=== PATIENT | male | born 1955 | race Caucasian/White ===

== ENCOUNTER → 2020-08-25 | Outpatient (CLI) | payer MEDICARE, BC ==
[~2020-08-25] MED LIST: OMNIPAQUE 350 MG/ML, 100ML BOTTLE ONE
== END | disposition home or self-care (01) ==
LOC: CFH 11:47
PROVIDERS: ATTEND Surgery
DX: K43.9 Ventral hernia without obstruction or gangrene (principal)
CPT/HCPCS: 74177; 82565; Q9967

== ENCOUNTER → 2020-11-16 | Outpatient (CLI) | payer MEDICARE, BC ==
[~2020-11-16] MED LIST changes: +CARB1TAB47 PO; +LEVO75TA PO; +LISI-170 PO; -OMNIPAQUE 350 MG/ML, 100ML BOTTLE ONE
[2020-11-16 14:25] LABS: ALBUMIN 3.7 g/dL (3.4-5.0); ANION GAP 5 mmol/L (5-15); CALCIUM 9.2 mg/dL (8.5-10.1); CHLORIDE 108 mmol/L (98-107)
[2020-11-16 14:30] LABS: ALANINE AMINOTRANSFERASE 11 U/L (12-78); ALKALINE PHOSPHATASE 57 U/L (45-117); BILIRUBIN,TOTAL 0.6 mg/dL (0.2-1.0); CREATININE 0.81 mg/dL (0.7-1.3); TOTAL PROTEIN 7.6 g/dL (6.4-8.2)
== END | disposition home or self-care (01) ==
LOC: STAR 13:22
PROVIDERS: ATTEND Surgery
DX: Z01.818 Encounter for other preprocedural examination (principal); K43.2 Incisional hernia without obstruction or gangrene; R94.31 Abnormal electrocardiogram [ECG] [EKG]; I44.4 Left anterior fascicular block; G20 Parkinson's disease
CPT/HCPCS: 36415; 80053; 93005

== ENCOUNTER 2020-11-22 07:42 | Inpatient (IN) | payer MEDICARE, BC ==
[~2020-11-22] VITALS: Ht 185.4 cm; Wt 130.7 kg
[~2020-11-22 07:42] MED LIST changes: +BUPIVACAINE/PF 0.5% ONE; +EPINEPHRINE 1 MG/ML, 1ML ONE
[2020-11-22] MEDS ORDERED: VIT D PO (08:03)
[2020-11-22 08:05] VITALS: BP 139/95
[2020-11-22] MEDS ORDERED: CHLORHEXIDINE 15 ML UDC ONE (08:06)
[2020-11-22] MEDS ORDERED: LACTATED RINGERS 1,000 ML IV SCH (08:30)
[2020-11-22] MEDS ORDERED: CHLORHEXIDINE 15 ML UDC PO ONE (08:30)
[2020-11-22] MEDS ORDERED: MIDAZOLAM 1 MG/ML, 2ML ONE (08:41)
[2020-11-22] MEDS ORDERED: ROCURONIUM 10MG/ML,5ML ONE (08:42)
[2020-11-22] MEDS ORDERED: PROPOFOL 10 MG/ML, 20ML ONE (08:42)
[2020-11-22] MEDS ORDERED: NEOSTIGMINE 1 MG/ML, 10ML ONE (08:42)
[2020-11-22] MEDS ORDERED: GLYCOPYRROLATE 0.2MG/1ML, 5ML ONE (08:42)
[2020-11-22] MEDS ORDERED: CEFAZOLIN 1,000 MG ONE ×2 (08:42→09:45)
[2020-11-22] MEDS ORDERED: FENTANYL PF 250 MCG/5ML ONE (08:42)
[2020-11-22] MEDS ORDERED: FENTANYL PF 100 MCG/2ML IV PRN (09:30)
[2020-11-22] MEDS ORDERED: morphine SULFATE 10 MG/ML, 1ML IVPush PRN (09:30)
[2020-11-22] MEDS ORDERED: OXYcodone 5 MG/5 ML ORAL.SOL UDC PO PRN (09:30)
[2020-11-22] MEDS ORDERED: ACETAMINOPHEN 325 MG TABLET PO PRN (09:30)
[2020-11-22] MEDS ORDERED: LABETALOL 5MG/ML, 20ML IV PRN (09:30)
[2020-11-22] MEDS ORDERED: PROMETHAZINE 25 MG/ML, 1ML IVPush PRN (09:30)
[2020-11-22] MEDS ORDERED: MEPERIDINE/PF 25MG/0.5ML IVPush PRN (09:30)
[2020-11-22] MEDS ORDERED: hydrALAzine 20 MG/ML, 1ML IV PRN (09:30)
[2020-11-22] MEDS ORDERED: PHENYLEPHRINE 10 MG/ML ONE (09:35)
[2020-11-22] MEDS ORDERED: FENTANYL PF 100 MCG/2ML ONE ×3 (10:26→12:01)
[2020-11-22] MEDS ORDERED: VASOPRESSIN 20 UNIT/ML, 1ML ONE (10:44)
[2020-11-22] MEDS ORDERED: CALCIUM CARBONATE 500 MG TAB.CHEW PO PRN (12:00)
[2020-11-22] MEDS: CARBIDOPA/LEVODOPA 25 MG/100 MG TABLET PO SCH ×3 (12:00→21:40)
[2020-11-22] MEDS ORDERED: LORazepam 2 MG/ML, 1ML IVPush PRN (12:00)
[2020-11-22] MEDS ORDERED: ACETAMINOPHEN 100 ML IVPB SCH (12:00)
[2020-11-22] MEDS ORDERED: OXYcodone 5 MG/5 ML ORAL.SOL UDC ONE (12:01)
[2020-11-22] MEDS ORDERED: HYDROmorphone 1 MG/ML, 1ML INJ ONE (12:01)
[2020-11-22] MEDS: HYDROmorphone 1 MG/ML, 1ML INJ IVPush PRN ×2 (12:12→12:17)
[2020-11-22] MEDS ORDERED: ONDANSETRON 2MG/ML, 2ML ONE (12:13)
[2020-11-22] MEDS ORDERED: ONDANSETRON 2MG/ML, 2ML IVPush PRN ×2 (12:30→13:30)
[2020-11-22] MEDS: LABETALOL 5MG/ML, 20ML IVPush SCH ×2 (13:30→21:30)
[2020-11-22] MEDS: LACTATED RINGERS 1,000 ML IV SCH (13:30)
[2020-11-22] MEDS ORDERED: OXYcodone IR 5MG TABLET PO PRN (13:30)
[2020-11-22] MEDS ORDERED: HYDROmorphone 1 MG/ML, 1ML INJ IVPush PRN (13:30)
[2020-11-22] MEDS ORDERED: ACETAMINOPHEN 650 MG/20.3 ML UDC PO PRN (14:30)
[2020-11-22 14:42] VITALS: BP 114/75
[2020-11-22] MEDS: IBUPROFEN 800 MG TABLET PO SCH ×2 (16:11→21:56)
[2020-11-22 19:44] VITALS: BP 108/67
[2020-11-23 00:04] VITALS: BP 111/68
[2020-11-23 04:21] VITALS: BP 114/76
[2020-11-23] MEDS: LABETALOL 5MG/ML, 20ML IVPush SCH ×2 (05:30→12:03)
[2020-11-23] MEDS ORDERED: LEVOTHYROXINE 75 MCG TABLET PO SCH (06:00)
[2020-11-23] MEDS ORDERED: ENOXAPARIN 30 MG/0.3 ML SQ SCH (06:00)
[2020-11-23] MEDS: CARBIDOPA/LEVODOPA 25 MG/100 MG TABLET PO SCH ×2 (06:18→12:02)
[2020-11-23 07:32] VITALS: BP 119/79
[2020-11-23] MEDS: LACTATED RINGERS 1,000 ML IV SCH (07:37)
[2020-11-23] MEDS ORDERED: LISINOPRIL 20 MG TABLET PO SCH (09:00)
[2020-11-23] MEDS: IBUPROFEN 800 MG TABLET PO SCH (09:23)
[2020-11-23 13:54] VITALS: BP 104/73
== END 2020-11-23 15:08 | disposition home or self-care (01) | DRG 355 ==
LOC: OUT 07:42 → ORIP 11:44 → 4NE 13:21
PROVIDERS: ADMIT Surgery; ATTEND Surgery
PROC: 8E0W4CZ Robotic Assisted Procedure of Trunk Region, Percutaneous Endoscopic Approach (ICD-10-PCS; 2020-11-22)
PROC: 0KXG0ZZ Transfer Left Trunk Muscle, Open Approach (ICD-10-PCS; 2020-11-22)
PROC: 0KXF0ZZ Transfer Right Trunk Muscle, Open Approach (ICD-10-PCS; 2020-11-22)
PROC: 0WUF4JZ Supplement Abdominal Wall with Synthetic Substitute, Percutaneous Endoscopic Approach (ICD-10-PCS; principal; 2020-11-22 10:00)
DX: K43.2 Incisional hernia without obstruction or gangrene (principal); Z79.899 Other long term (current) drug therapy
CPT/HCPCS: G0378; J0171; J0690; J1170; J1650; J2250; J2405; J2704; J2710; J3010; C1781; J2370; J7120